=== PATIENT | male | born 1960 | race African-American/Black ===

== ENCOUNTER 2021-08-02 05:25 | Day surgery (SDC) | payer OTHER ==
[~2021-08-02] VITALS: Ht 180 cm; Wt 97.0 kg
[~2021-08-02 05:25] MED LIST: AMLODIPINE BESY10 MG PO; ASPIR 8181 MG PO; CHLORTHALIDONE25 MG PO; CRESTOR20 MG PO; ELIQUIS2.5 MG PO; ELIQUIS5 MG PO; FEOSOL325 MG PO; K-DUR20 MEQ PO; METOPROLOL SUCC25 MG PO; NORCO 7.5-3251 EACH PO; NORVASC10 MG PO; PERCOCET 7.5/321 TAB PO; POTASSIUM CHLO20 ME2 PO; VITAMIN D32000 UNIT PO; ZOFRAN4 MG PO
[2021-08-03 07:25] LABS: BASOPHIL 0.1 % (0-2); EOSINOPHIL 0.3 % (0-5); HCT 39.1 % (42.0-52.0); HGB 12.5 g/dl (13.2-18.0); LYMPHOCYTE 14.7 % (15-48); MCH 28.3 pg (25.0-31.0); MONOCYTE 13.2 % (0-12); MPV 9.4 fL (6.0-9.5); NEUTROPHIL 71.3 % (41-80); NRBC 0; PLT 191 K/uL (150-400); RBC 4.41 M/uL (4.70-6.00); RDW 13.2 % (11.5-14.0); WBC 7.9 K/uL (4.0-10.5)
[2021-08-03 07:43] LABS: MCV 88.7 fL (78.0-100.0)
[2021-08-03 08:01] LABS: BUN/CREAT RATIO (CALC) 15.5 RATIO; CREATININE 2.19 mg/dL (0.67-1.17); POTASSIUM 4.7 mmol/L (3.5-5.1)
[2021-08-03] MEDS ORDERED: ULTRA-LIGHT RO1 EACH XX (08:49)
[2021-08-03] MEDS ORDERED: OXYCODONE-ACET1 EAC1 PO (09:01)
== END 2021-08-03 11:14 | disposition home or self-care (01) ==
LOC: FAS 05:25 → FOR 08-09 12:30
PROVIDERS: Legal Medicine
DX: M16.12 Unilateral primary osteoarthritis, left hip (principal); M87.052 Idiopathic aseptic necrosis of left femur; M87.051 Idiopathic aseptic necrosis of right femur; I12.9 Hypertensive chronic kidney disease with stage 1 through stage 4 chronic kidney disease, or unspecified chronic kidney disease; N18.30 Chronic kidney disease, stage 3 unspecified; Z86.711 Personal history of pulmonary embolism; Z86.718 Personal history of other venous thrombosis and embolism; Z88.0 Allergy status to penicillin; Z88.5 Allergy status to narcotic agent; Z88.8 Allergy status to other drugs, medicaments and biological substances; Z79.01 Long term (current) use of anticoagulants; Z79.899 Other long term (current) drug therapy; E78.5 Hyperlipidemia, unspecified
CPT/HCPCS: 36415; 73501; 76000; 80048; 85025; 86850; 86900; 86901; 94010; 97110; 97162; 97165; 97530-GP; 97535; C1713; C1776; J0171; J1100; J1170; J2250; J2405; J2704; J2795; J3010; J7120